=== PATIENT | female | born 1955 | race Caucasian/White ===

== ENCOUNTER 2023-10-08 16:57 | Emergency (ER) | payer MEDICARE, OTHER, SELFPAY ==
[2023-10-08 17:04] VITALS: BP 170/84
--- NOTE | 2023-10-08 17:12 | ED.PDOC.TRB ---
ED Provider Triage
-
Patient seen by provider in Triage?: Seen in Triage
67-year-old female presents with intermittent left-sided nosebleeds for the past week and a half. About a month ago, she fell while hiking and struck the left side of her face against a tree. No significant pain then. She denies any facial pain
now. She is not anticoagulated. Of note, patient does have history of bradycardia. In triage her heart rate is in the 30s. EKG pending labs ordered. No active bleeding in triage. Deferred on imaging
[2023-10-08 17:26] LABS: % Basophils 0.6 % (0-2); % Eosinophils 2.3 % (0-6); % Lymphocytes 40.2 % (20.5-51.1); % Monocytes 9.5 % (1.7-9.3); % Neutrophils 47.4 % (42.2-75.2); Absolute Eosinophils 0.2 10^3/uL (0-0.7); Absolute Lymphocytes 2.6 10^3/uL (1.2-3.4); Absolute Monocytes 0.6 10^3/uL (0.1-0.6); Absolute Neutrophils 3.1 10^3/uL (1.4-6.5); Hematocrit 43.4 % (37.0-47.0); Hemoglobin 15.1 g/dL (12.0-16.0); Mean Corp Hgb Conc. 34.8 g/dL (33.0-37.0); Mean Corpuscular Hgb 33.6 pg (27.0-31.0); Mean Corpuscular Volume 96.4 fL (81.0-99.0); Mean Platelet Volume 10.3 fL (7.4-10.4); Nucleated Red Blood Cells % 0 %; Platelet Count 206 10^3/uL (130-400); White Blood Cell Count 6.6 10^3/uL (4.8-10.8)
[2023-10-08 17:41] LABS: ALT (SGPT) 36 U/L (0-35); AST (SGOT) 34 U/L (14-36); Albumin 3.9 g/dl (3.5-5.0); Alkaline Phosphatase 60 U/L (38-126); Blood Urea Nitrogen 20 mg/dl (7-17); Calcium 9.5 mg/dl (8.4-10.2); Carbon Dioxide 29 mmol/L (22-30); Chloride 105 mmol/L (98-107); Glucose 99 mg/dl (70-99); Potassium 4.6 mmol/L (3.5-5.1); Sodium 139 mmol/L (135-145); Total Bilirubin 0.9 mg/dl (0.2-1.3); Total Protein 6.1 g/dl (6.3-8.2); eGFR > 60.00
[2023-10-08 17:52] VITALS: BP 153/80
--- NOTE | 2023-10-08 18:09 | ED.GENMED ---
History of Present Illness
General
Chief Complaint: Nose Bleed
Source: patient
Time Seen by Provider: 10/08/23 17:48
History of Present Illness
History of Present Illness:
67yoF with a history of prior DVTs, PVCs, GERD, and depression presenting for evaluation of nosebleeds. Patient had a fall about 5-6 weeks ago in which she tripped while hiking. Patient states that she struck her head at that time and lost
consciousness. She had a left sided nosebleed immediately after the injury. She has been having recurrent nosebleeds since then which have been increasing over the past few days. Last nosebleed was yesterday. She was instructed to go to the ED by
her PCP. She is otherwise asymptomatic and denies any dizziness, chest pain, shortness of breath, fatigue.
Past History
Past History
ED Past Medical History: Asthma, GERD, HTN, Hypercholesterolemia, Psychiatric (depr), Other (ZARINA) and Other (DVT left leg)
ED Past Surgical History: Orthopedic and Other (L common iliac vein stent); Negative Gynecological or Urological
Social History
Tobacco: Non-smoker
Alcohol: None
Drug: None
Personal:
Living: with family
Employment: Employed
Family History
Family History: CAD and Other
Phy Exam
General Physical Exam
General Presentation: well appearing and no apparent distress
General age: appears stated age
General Skin: warm and dry
General Habitus: normal
General Mental: alert
ENT Exam
Additional ENT: No epistaxis noted
Cardiovascular Exam
Cardiovascular Exam: bradycardia
Pulmonary Exam
Pulmonary Exam: lungs clear, no respiratory distress, no crackles and no wheezing
Skin Exam
Skin Exam: normal color and warm/dry
Psychiatric Exam
Psychiatric Exam: normal mood/affect
Course
Orders/Labs/Results
Orders:
Orders
10/08/23 17:10
Electrocardiogram (*1) Urgent
Reason for Study: Bradycardia / Tachycardia
10/08/23 17:11
EKG- Treatment ONCE
10/08/23 17:19
Complete Blood Count/With Diff Urgent
Comprehensive Metabolic Panel Urgent
Magnesium Urgent
Comment: ADD ON
TSH Reflex To Free T4 Urgent
Comment: ADD ON
10/08/23 17:58
Add On- LAB Urgent
Tests Added?: magnesium
Cardiac Monitoring- Treatment ONCE
10/08/23 18:04
Add On- LAB Urgent
Tests Added?: TSH reflex to free t4
10/08/23 18:28
Troponin I Urgent
Abnormal Lab Results
10/08/23
17:19
MCH 33.6 H pg
(27.0-31.0)
Monocytes % 9.5 H %
(1.7-9.3)
BUN 20 H mg/dl
(7-17)
ALT 36 H U/L
(0-35)
Total Protein 6.1 L g/dl
(6.3-8.2)
10/08/23 17:19
10/08/23 17:19
Vital Signs
Initial and Last Documented VS:
Initial Vital Signs
Temp Pulse Resp BP Pulse Ox
98.5 F 34 18 170/84 97
10/08/23 17:04 10/08/23 17:04 10/08/23 17:04 10/08/23 17:04 10/08/23 17:04
Last Documented Vital Signs
Temp Pulse Resp BP Pulse Ox
98.5 F 73 21 148/85 95
10/08/23 17:04 10/08/23 19:30 10/08/23 19:30 10/08/23 19:00 10/08/23 18:30
MDM/Problems Addressed
Differential Diagnosis Includes:
67yoF here with recurrent L sided nose bleeds x 5-6 weeks after a fall. Incidentally noted to be bradycardic in the 30s in triage. She is asymptomatic from this perspective and BP is stable. 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
history of. Patient is well-appearing in no acute distress. Differential diagnosis includes but is not limited to: PVCs, electrolyte abnormality, thyroid dysfunction
Initial ED plan: Patient placed on cardiac cath lab radiology technologist. Check cardiac labs, magnesium, TSH, and EKG. Will discuss with cardiology.
*EKG
Interpreted by ED Provider?: Yes
EKG Intrepretation Date: 10/08/23
Heart Rate: 66
Rate: normal
Rhythm: sinus and PVC's
[place]: normal axis
QRS Pattern: normal QRS
Ischemia: no ischemia
*Critical Care Note
Total Time (30-74mins, 75-104mins- exclusive of procedures): Not Applicable
Update Note
Update Note:
EKG shows normal sinus rhythm with frequent PVCs with couplets. Electrolytes and TSH normal. Troponin within normal limits. Case was discussed with tap grinder, Dr. Beard, who does not recommend any changes given that she is hemodynamically
stable with a known history of PVCs. Patient in agreement with plan. Advised saline nasal spray BID and cool mist humidifier to help prevent nasal dryness. Advised f/u with PCP, ENT, and cardiology. Strict ED return precautions discussed including
dizziness and syncope. She was discharged in stable condition.
ED Attending Note
-
Portions of this chart may have been created with voice recognition software.� Occasional wrong word or��sound alike� substitutions may have occurred due to the inherent limitations of voice recognition software.
Discharge Plan
Departure
Patient Disposition: Home (Routine Discharge)
Date of Disposition: 10/08/23
Time of Disposition: 19:39
Patient with high blood pressure during this ER visit?: Yes
Discharge Problem:
Recurrent epistaxis, Frequent PVCs
Instructions: Ventricular premature beats, Nosebleeds (DC)
Prescriptions:
No Action
citalopram [Celexa] 40 MG tablet
40 mg PO DAILY
simvastatin 10 MG tablet
20 mg PO DAILY
sucralfate 1 gram Tablet
1 g PO BID
Rx Instructions:
take with naproxen
metoprolol succinate 50 mg Tablet Extended Release 24 Hr
50 mg PO BID Qty: 60 0RF
ferrous sulfate 325 mg (65 mg iron) tablet
325 mg PO DAILY Qty: 100 0RF
pantoprazole 20 mg Tablet,Delayed Release (Dr/Ec)
20 mg PO DAILY
Referrals:
Steve Romero MD [Family Provider] -
Juan Luis Rand MD [Active] -
Tano Hu MD [Active] -
Activity Restrictions/Additional Instructions:
Use saline nasal spray 2x daily. Use a cool mist humidifier at nighttime.
Please follow-up with your family doctor, cardiology, and ENT.
Return to the ER with any worsening symptoms, dizziness, passing out, or with a nosebleed lasting >20-30 minutes.
Interventions
Interventions:
*Risk Screen - Suicide Last Done: 10/08/23 18:04
*General Assessment Last Done: 10/08/23 20:00
*Neglect/Abuse Screening Last Done: 10/08/23 18:04
ED- Fall Risk Assessment Last Done: 10/08/23 20:00
*ED COVID-19 Vaccine History Last Done: 10/08/23 20:00
*Nursing Disposition Last Done: 10/08/23 20:00
Discharge Date and Time
Discharge Date/Time: 10/08/23 19:45
Print Language: PANAMANIAN
[2023-10-08 18:36] LABS: Magnesium 2.2 mg/dl (1.6-2.3)
[2023-10-08 18:59] LABS: Troponin I < 0.012 ng/ml
[2023-10-08 19:00] VITALS: BP 148/85
[2023-10-08 19:16] LABS: TSH Reflex To Free T4 0.96 uIU/ml (0.47-4.68)
== END 2023-10-08 19:45 | disposition home or self-care (01) ==
LOC: EMR 16:57
PROVIDERS: Emergency Medicine; Physician Assistant; EMERGENCY PHYSICIAN Emergency Medicine; FAMILY PHYSICIAN Family Medicine
DX: R04.0 Epistaxis (principal); I49.3 Ventricular premature depolarization; K21.9 Gastro-esophageal reflux disease without esophagitis; F32.A Depression, unspecified; E78.00 Pure hypercholesterolemia, unspecified; G47.33 Obstructive sleep apnea (adult) (pediatric); I10 Essential (primary) hypertension; J45.909 Unspecified asthma, uncomplicated; Z86.718 Personal history of other venous thrombosis and embolism; Z91.81 History of falling; Z91.018 Allergy to other foods
CPT/HCPCS: 99283; 80053; 83735; 84443; 84484; 85025; 93005

== ENCOUNTER → 2023-12-29 14:15 | Outpatient (REF) | payer MEDICARE, OTHER, SELFPAY | LOC: WDC 14:15 | PROVIDERS: ATTENDING PHYSICIAN Obstetrics & Gynecology; FAMILY PHYSICIAN Family Medicine | DX: Z12.31 Encounter for screening mammogram for malignant neoplasm of breast (principal) | CPT/HCPCS: 77063; 77067 ==

== ENCOUNTER → 2024-03-03 14:40 | Outpatient (REF) | payer MEDICARE, OTHER, SELFPAY | LOC: RAD 14:40 | PROVIDERS: ATTENDING PHYSICIAN Student in an Organized Health Care Education/Training Program; FAMILY PHYSICIAN Family Medicine | DX: R07.81 Pleurodynia (principal) | CPT/HCPCS: 71101 ==

== ENCOUNTER → 2024-04-06 07:03 | Outpatient (REF) | payer MEDICARE, OTHER, SELFPAY | LOC: PAVMRI 07:03 | PROVIDERS: ATTENDING PHYSICIAN Family Medicine | DX: R51.9 Headache, unspecified (principal) | CPT/HCPCS: 70551 ==

== ENCOUNTER 2024-04-08 00:37 | Emergency (ER) | payer MEDICARE, OTHER, SELFPAY ==
[2024-04-08 00:50] VITALS: BP 183/113
[2024-04-08 01:28] LABS: % Eosinophils 2.4 % (0-6); % Immature Granulocytes 0.1 % (0-0.5); % Lymphocytes 41.2 % (20.5-51.1); % Monocytes 9.5 % (1.7-9.3); % Neutrophils 45.8 % (42.2-75.2); Absolute Basophils 0.1 10^3/uL (0-0.2); Absolute Eosinophils 0.2 10^3/uL (0-0.7); Absolute Monocytes 0.7 10^3/uL (0.1-0.6); Absolute Neutrophils 3.3 10^3/uL (1.4-6.5); Hematocrit 46.3 % (37.0-47.0); Hemoglobin 15.7 g/dL (12.0-16.0); Mean Corp Hgb Conc. 33.9 g/dL (33.0-37.0); Mean Corpuscular Hgb 33.9 pg (27.0-31.0); Mean Platelet Volume 9.3 fL (7.4-10.4); Nucleated Red Blood Cells % 0 %; Platelet Count 264 10^3/uL (130-400); Red Blood Cell Count 4.63 10^6/uL (4.20-5.40); Red Cell Dist. Width 11.9 % (11.5-14.5); White Blood Cell Count 7.2 10^3/uL (4.8-10.8)
[2024-04-08 01:44] LABS: ALT (SGPT) 23 U/L (0-35); AST (SGOT) 24 U/L (14-36); Alkaline Phosphatase 88 U/L (38-126); Blood Urea Nitrogen 11 mg/dl (7-17); Calcium 10.2 mg/dl (8.4-10.2); Carbon Dioxide 31 mmol/L (22-30); Chloride 103 mmol/L (98-107); Glucose 99 mg/dl (70-99); Potassium 4.2 mmol/L (3.5-5.1); Sodium 140 mmol/L (135-145); Total Bilirubin 0.4 mg/dl (0.2-1.3); Total Protein 6.4 g/dl (6.3-8.2); eGFR > 60.00
[2024-04-08 03:27] VITALS: BMI 28.0
[2024-04-08 03:32] VITALS: BP 193/96
[2024-04-08 04:00] VITALS: BP 188/94
--- NOTE | 2024-04-08 04:29 | ED.GENMED ---
History of Present Illness
General
Chief Complaint: Numbness
Source: patient and spouse
Exam Limitations: none
Time Seen by Provider: 04/08/24 04:20
Nursing documentation reviewed up to this point in time: agreed with
History of Present Illness
History of Present Illness:
Pleasant 68-year-old female presents to the Emergency Department with subacute numbness. She has been having numbness for weeks upon weeks. She saw her family doctor who sent her for an MRI. She had the MRI yesterday. It revealed 2 foci of low
signal intensity susceptibility demonstrated in the right parietal lobe and right para midline silas, as described. 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 Such findings are nonspecific, and may be related to prior
remote trauma, or possibly cavernous malformations. Patient was advised to follow-up with neurology. She called our neurologist and was referred to [facility] neurology and eventually neurosurgery. She will have a telephone consultation
scheduled for the morning. She is here because the numbness is still present. Denies fever, chills, nausea or vomiting. Reports no chest pain or shortness of breath. She is able to ambulate. She is accompanied by her spouse. Patient has been
suffering from chronic migraines. She has had them since childhood. She states that she has been having a migraine for the last several days, prior to the MRI. She states that the symptoms are more mild now.
Past History
Past History
ED Past Medical History: Asthma, GERD, HTN, Hypercholesterolemia, Psychiatric (depr), Other (ZARINA) and Other (DVT left leg)
ED Past Surgical History: Orthopedic and Other (L common iliac vein stent); Negative Gynecological or Urological
Social History
Tobacco: Non-smoker
Alcohol: None
Drug: None
Personal:
Living: with family
Employment: Employed
Family History
Family History: CAD and Other
Review of Systems
Review of Systems
Allergies reviewed?: Yes
All Other Systems: ROS reviewed and negative except as documented in HPI and ROS
Constitutional: Reports no symptoms
EENT: Reports no symptoms
Respiratory: Reports no symptoms
Cardiac: Reports no symptoms
ABD/GI: Reports no symptoms
: Reports no symptoms
Musculoskeletal: Reports no symptoms
Skin: Reports no symptoms
Neurological: Reports numbness
Endocrine: Reports no symptoms
Hematologic/Lymphatic: Reports no symptoms
Psychiatric: Reports anxiety
Phy Exam
General Physical Exam
General Presentation: well appearing and no apparent distress
General Skin: warm and dry
General Habitus: normal
General Mental: alert
General Hydration: appears well hydrated
ENT Exam
ENT Exam: EOMI, pharynx normal, neck supple and normocephalic
Eye Exam
Eye Exam: PERRL, cornea clear and conjunctiva normal
Cardiovascular Exam
Cardiovascular Exam: regular rate/rhythm, no edema, no murmur and normal peripheral pulses
Pulmonary Exam
Pulmonary Exam: lungs clear, no respiratory distress, no rales, no crackles, no rhonchi, no stridor, no wheezing and no cough
Gastrointestinal Exam
Gastrointestinal Exam: normal bowel sounds, non tender, soft, no organomegaly, no pulsatile mass and non distended
Neurological Exam
Neurological Exam: alert, oriented x3, CN II-XII intact, no motor deficits, no sensory deficits, speech normal and cerebellum intact
[place] Coma Scale
Eye Opening: Spontaneous
Verbal Response: Oriented
Motor Response: Obeys Commands
GCS Total Score: 15
Musculoskeletal Exam
Musculoskeletal Exam: full ROM and no edema
Skin Exam
Skin Exam: normal color, warm/dry, no rash and no petechia
Psychiatric Exam
Psychiatric Exam: normal mood/affect
Course
Orders/Labs/Results
Orders:
Orders
04/08/24 01:07
CMP [Comprehensive Metabolic Panel] Urgent
Complete Blood Count/With Diff Urgent
Abnormal Lab Results
04/08/24
01:07
MCV 100.0 H fL
(81.0-99.0)
MCH 33.9 H pg
(27.0-31.0)
Absolute Monos (auto) 0.7 H 10^3/uL
(0.1-0.6)
Monocytes % 9.5 H %
(1.7-9.3)
Carbon Dioxide 31 H mmol/L
(22-30)
04/08/24 01:07
04/08/24 01:07
Vital Signs
Initial and Last Documented VS:
Initial Vital Signs
Temp Pulse Resp BP Pulse Ox
97.7 F 67 16 183/113 97
04/08/24 00:50 04/08/24 00:50 04/08/24 00:50 04/08/24 00:50 04/08/24 00:50
Last Documented Vital Signs
Temp Pulse Resp BP Pulse Ox
97.7 F 59 17 188/94 92
04/08/24 00:50 04/08/24 04:15 04/08/24 04:15 04/08/24 04:00 04/08/24 04:15
*Critical Care Note
Total Time (30-74mins, 75-104mins- exclusive of procedures): Not Applicable
ED Attending Note
-
Portions of this chart may have been created with voice recognition software.� Occasional wrong word or��sound alike� substitutions may have occurred due to the inherent limitations of voice recognition software.
Discharge Plan
Departure
Patient Disposition: Home (Routine Discharge)
Date of Disposition: 04/08/24
Time of Disposition: 04:33
Patient with high blood pressure during this ER visit?: Yes
Condition: Good
Discharge Problem:
Numbness
Instructions: Paresthesia (DC)
Prescriptions:
No Action
citalopram [Celexa] 40 MG tablet
40 mg PO DAILY
simvastatin 10 MG tablet
20 mg PO DAILY
sucralfate 1 gram Tablet
1 g PO BID
Rx Instructions:
take with naproxen
metoprolol succinate 50 mg Tablet Extended Release 24 Hr
50 mg PO BID Qty: 60 0RF
ferrous sulfate 325 mg (65 mg iron) tablet
325 mg PO DAILY Qty: 100 0RF
pantoprazole 20 mg Tablet,Delayed Release (Dr/Ec)
20 mg PO DAILY
Referrals:
Steve Shaw MD [Active] -
Interventions
Interventions:
*Risk Screen - Suicide Last Done: 04/08/24 00:50
*General Assessment Last Done: 04/08/24 03:16
*Neglect/Abuse Screening Last Done: 04/08/24 03:16
ED- Fall Risk Assessment Last Done: 04/08/24 03:16
*ED COVID-19 Vaccine History Last Done: 04/08/24 03:16
ED- Neurological Assessment Last Done: 04/08/24 03:16
Discharge Date and Time
Print Language: GIBRALTARIAN
[2024-04-08 04:45] VITALS: BP 187/105
[2024-04-08] MEDS: LOPRESSOR 25 MG PO (04:45)
[2024-04-08] MEDS: DECADRON 10 MG PO (04:48)
[2024-04-08 05:29] VITALS: BP 188/107
[2024-04-08 05:35] VITALS: BP 188/107
== END 2024-04-08 05:35 | disposition home or self-care (01) ==
LOC: EMR 00:37
PROVIDERS: EMERGENCY PHYSICIAN Student in an Organized Health Care Education/Training Program; FAMILY PHYSICIAN Family Medicine
DX: R20.0 Anesthesia of skin (principal); I10 Essential (primary) hypertension
CPT/HCPCS: 99283; 80053; 85025

== ENCOUNTER → 2024-04-26 10:03 | Outpatient (REF) | payer MEDICARE, OTHER, SELFPAY | LOC: RAD 10:03 | PROVIDERS: ATTENDING PHYSICIAN Urology; FAMILY PHYSICIAN Family Medicine | DX: R82.998 Other abnormal findings in urine (principal) | CPT/HCPCS: 76775 ==

== ENCOUNTER 2024-10-20 06:18 | Day surgery (SDC) | payer MEDICARE, OTHER, SELFPAY | END 2024-10-20 10:48 | disposition home or self-care (01) | LOC: GI 06:18 | PROVIDERS: ATTENDING PHYSICIAN Specialist | DX: Z12.11 Encounter for screening for malignant neoplasm of colon (principal); K64.8 Other hemorrhoids; Z80.0 Family history of malignant neoplasm of digestive organs | CPT/HCPCS: G0105 ==

== ENCOUNTER → 2024-11-08 06:00 | Outpatient (REF) | payer MEDICARE, OTHER, SELFPAY | LOC: DHSLP 06:00 | PROVIDERS: ATTENDING PHYSICIAN Internal Medicine; FAMILY PHYSICIAN Family Medicine | DX: G47.33 Obstructive sleep apnea (adult) (pediatric) (principal) | CPT/HCPCS: 95800 ==

== ENCOUNTER → 2025-01-04 08:56 | Outpatient (REF) | payer MEDICARE, OTHER, SELFPAY | LOC: WDC 08:56 | PROVIDERS: ATTENDING PHYSICIAN Family Medicine | DX: Z12.31 Encounter for screening mammogram for malignant neoplasm of breast (principal) | CPT/HCPCS: 77063; 77067 ==